=== PATIENT | female | born 1995 | race Caucasian/White ===

== ENCOUNTER 2020-11-25 18:41 | Observation (INO) | payer OTHER, SELFPAY ==
[2020-11-25 19:03] VITALS: BP 136/70; PULSE 87
[2020-11-25 19:16] VITALS: BP 127/53; PULSE 84
[2020-11-25 19:27] VITALS: TEMP 36.9
--- NOTE | 2020-11-25 20:55 | OBADM ---
This patient, Loni Sewell, admitted to the OB room OB Post [facility] for observation. Patient/family oriented to hospital policies and general routines including ID bracelet, bed and alarms, visiting hours, pain management, procedures, bathroom and other care routines, personal items, smoking policy, room service/diet, and visiting hours. Patient/Family are encouraged to report perceived risks to care and to ask questions if they do not understand what they are told or what they should do.
--- NOTE | 2020-12-03 09:40 | PM.OBTRLD ---
OB - Triage/Final Diagnosis Visit Information Reason for evaluation: other (Pre term contractions; leaking vaginal fluid) Comments/Additional reasons for admission: I have assessed the risk for this patient, Loni Sewell, and determined that she would benefit from observation care.
== END 2020-11-25 19:58 | disposition home or self-care (01) ==
PROVIDERS: Admitting Provider Obstetrics & Gynecology Gynecology; Visit Provider Obstetrics & Gynecology Gynecology
DX: O60.03 Preterm labor without delivery, third trimester (principal); O42.913 Preterm premature rupture of membranes, unspecified as to length of time between rupture and onset of labor, third trimester; Z3A.29 29 weeks gestation of pregnancy
CPT/HCPCS: 84112; G0378; G0379

== ENCOUNTER 2020-12-03 09:45 | Outpatient (RCR) | payer OTHER, SELFPAY ==
[2020-12-03 11:07] LABS: Hematocrit 34.8 % (37.0-47.0); Hemoglobin 11.4 g/dL (12.0-15.0)
[2020-12-03 11:34] LABS: Glucose 1 Hour PP 50gm Dose 164 mg/dL
[2020-12-03 12:04] LABS: HIV 1/2 Ab P24 Ag Result Negative (Negative)
[2020-12-03 12:45] LABS: Vitamin D 25 Hydroxy 36.7 ng/mL
== END 2021-03-03 23:59 | disposition home or self-care (01) ==
LOC: ANHLAB 09:45
PROVIDERS: Visit Provider Obstetrics & Gynecology Gynecology
DX: Z11.4 Encounter for screening for human immunodeficiency virus [HIV] (principal); O36.0190 Maternal care for anti-D [Rh] antibodies, unspecified trimester, not applicable or unspecified; Z3A.00 Weeks of gestation of pregnancy not specified
CPT/HCPCS: 36415; 82306; 82947; 85014; 85018; 85461; 86703; G0432

== ENCOUNTER → 2020-12-03 15:16 | Outpatient (CLI) | payer OTHER, SELFPAY ==
--- NOTE | ~2020-12-03 | US_ITS ---
EXAMINATION: US OB follow up DATE: 12/03/2020 15:54 INDICATION: Follow-up of anatomy. Third trimester. TECHNIQUE: Real-time ultrasound of the pelvis was performed. COMPARISON: None. FINDINGS: There is a single living fetus in vertex presentation. The placenta is posterior, 9.8 cm from the ce rvix. heart rate is 140 beats per minute (bpm). The amniotic fluid index is 17.4 cm, which is n ormal. The following biometric data were obtained: Biparietal diameter (BPD): 7.4 cm; head circumference (HC): 27.2 cm; abdominal circumference (AC): 26 .4 cm; femur length (FL): 6.1 cm. These measurements are concordant. Estimated weight is 1621 g +/- 243 g, which correlates with 46th percentile when 02/08/21 is us ed as estimated date of delivery. As single measurements, these parameters are each equal to the following estimated gestational ages w ith ranges of +/- 2 standard deviations: BPD: 29 weeks 5 days (27 weeks 3 days - 31 weeks 6 days). HC: 29 weeks 4 days (27 weeks 4 days - 31 weeks 5 days). AC: 30 weeks 4 days (27 weeks 4 days - 33 weeks 3 days). FL: 31 weeks 4 days (28 weeks 4 days - 34 weeks 4 days). estimated gestational age based solely on measurements from this exam is 30 weeks 3 days +/- 2 weeks 1 days. The visualized portions of the spine are normal. The four-chamber heart view is normal. The kid neys are normal. The stomach and diaphragm are normal. IMPRESSION: 1. Single living fetus in vertex presentation. 2. Estimated weight is 1621 g +/- 243 g, which correlates with 46th percentile when 02/08/21 i s used as estimated date of delivery. 3. Normal visualized portions of the anatomy. Reviewed, dictated and finalized at location A. IMPRESSION: 1. Single living fetus in vertex presentation. 2. Estimated weight is 1621 g +/- 243 g, which correlates with 46th perc entile when 02/08/21 is used as estimated date of delivery. 3. Normal visualized portions of the anatomy.
== END ==
PROVIDERS: Visit Provider Obstetrics & Gynecology Gynecology
DX: Z36.2 Encounter for other antenatal screening follow-up (principal); Z3A.30 30 weeks gestation of pregnancy
CPT/HCPCS: 76816

== ENCOUNTER 2020-12-10 10:06 | Outpatient (CLI) | payer OTHER, SELFPAY ==
[2020-12-10 10:45] LABS: Glucose Fasting Gestational 85 mg/dL (>/=95)
[2020-12-10 12:25] LABS: Glucose 1 Hour Gest 149 mg/dL (>/=180)
[2020-12-10 13:30] LABS: Glucose 2 Hour Gest 110 mg/dL (>/= 155)
[2020-12-10 14:17] LABS: Glucose 3 Hour Gest 116 mg/dL (>/=140)
== END 2020-12-10 10:07 | disposition home or self-care (01) ==
LOC: ANHLAB 10:08
PROVIDERS: Visit Provider Obstetrics & Gynecology Gynecology
DX: O99.810 Abnormal glucose complicating pregnancy (principal); Z3A.00 Weeks of gestation of pregnancy not specified
CPT/HCPCS: 36415; 82951; 82952

== ENCOUNTER 2021-02-03 04:56 | Inpatient (IN) | payer OTHER, SELFPAY ==
[2021-02-03] VITALS (258 sets, daily range): BP systolic 95–162; BP diastolic 44–112; PULSE 57–98; TEMP 36.2–37.4; O2SAT 84–100; BMI 36.5
--- NOTE | 2021-02-03 05:13 | LDADM ---
This patient, Loni Sewell, was admitted to Labor/Delivery/Recovery 104 on 02/03/21 at 04:56. Plans for labor, pain management and were discussed with patient. Patient/family oriented to hospital policies and general routines including ID bracelet, bed and alarms, visiting hours, pain management, procedures, bathroom and other care routines, personal items, smoking policy, room service/diet and guest tray routines, security routines, and visiting hours. Patient/Family are encouraged to report perceived risks to care and to ask questions if they do not understand what they are told or what they should do. See OBIX for further documentation.
[2021-02-03 05:50] LABS: Basophils Percent Auto 0.3 % (0.2-1.2); Eosinophils Absolute Auto 0.1 K/mm3 (0-0.3); Eosinophils Percent Auto 0.7 % (0-4.4); Hemoglobin 10.7 g/dL (12.0-15.0); Immature Granulocyte Absolute 0.02 K/mm3 (0.00-0.031); Immature Granulocyte Percent A 0.3 % (0-0.5); Lymphocytes Absolute Auto 1.63 K/mm3 (0.9-3.2); Lymphocytes Percent Auto 23.8 % (18.3-44.2); Mean Corpuscular HGB Conc 33.4 g/dl (32-36); Mean Corpuscular Hemoglobin 28.2 pg (26-34); Mean Corpuscular Volume 84.4 fl (80-100); Mean Platelet Volume 12.6 fl (7.4-10.4); Monocytes Absolute Auto 0.5 K/mm3 (0.1-0.6); Monocytes Percent Auto 7.6 % (2.6-8.5); Neutrophils Absolute Auto 4.6 K/mm3 (1.3-6.7); Neutrophils Percent Auto 67.3 % (45.5-73.1); Platelet Count Result 225 k/mm3 (150-375); Red Blood Count 3.79 M/mm3 (4.2-5.4); Red Cell Distribution Width 12.5 % (11.5-14.5); White Blood Count 6.9 K/mm3 (4.5-10.0)
[2021-02-03] MEDS: LACTATED RINGERS 1,000 ML 125 ML IV CONT ×3 (05:54→16:27)
[2021-02-03] MEDS: OXYTOCIN 30 UNITS/NS 500 ML 30 UNITS/500 ML BAG 6 UNITS IV CONT (05:54)
--- NOTE | 2021-02-03 06:36 | WPDANESEPPF ---
Anes - Initial Pre Proc Eval Procedure: labor epidural Date/Time: 02/03/21 06:36 Surgeon: Elizabeth Grant MD Pre Op Diagnosis: labor pain Pre Op Diagnosis: Induction of Labor Patient Data Age: 25 Gender: F Height: 1.7 m Weight: 105.7 kg Last Vital Signs Temp 37.2 C 02/03/21 05:41 Pulse 76 02/03/21 06:31 BP 141/86 H 02/03/21 06:31 Allergies Allergy/AdvReac Type Severity Reaction Status Date / Time azithromycin Allergy Mild Rash Verified 02/03/21 06:08 Penicillins Allergy Unknown Rash Verified 02/03/21 06:08 Home Medications Medication Instructions Recorded Confirmed Type PNV cmb#95-ferrous fumarate-FA 1 tablet PO DAILY 01/11/21 01/11/21 History [] aspirin 81 mg PO DAILY 01/11/21 01/11/21 History sertraline 200 mg PO DAILY 01/11/21 02/03/21 History Laboratory Tests 02/03/21 02/03/21 05:38 05:39 WBC 6.9 K/mm3 K/mm3 (4.5-10.0) RBC 3.79 M/mm3 L M/mm3 (4.2-5.4) Hgb 10.7 g/dL L g/dL (12.0-15.0) Hct 32.0 % L % (37.0-47.0) MCV 84.4 fl fl (80-100) MCH 28.2 pg pg (26-34) MCHC 33.4 g/dl g/dl (32-36) RDW 12.5 % % (11.5-14.5) Plt Count 225 k/mm3 k/mm3 (150-375) MPV 12.6 fl H fl (7.4-10.4) Immature Gran % (Auto) 0.3 % % (0-0.5) Neut % (Auto) 67.3 % % (45.5-73.1) Lymph % (Auto) 23.8 % % (18.3-44.2) [place] % (Auto) 7.6 % % (2.6-8.5) Eos % (Auto) 0.7 % % (0-4.4) Baso % (Auto) 0.3 % % (0.2-1.2) Lymph # (Auto) 1.63 K/mm3 K/mm3 (0.9-3.2) [place] # (Auto) 0.5 K/mm3 K/mm3 (0.1-0.6) Eos # (Auto) 0.1 K/mm3 K/mm3 (0-0.3) Baso # (Auto) 0.0 K/mm3 K/mm3 (0.0-0.1) Abs Immat Gran (auto) 0.02 K/mm3 K/mm3 (0.00-0.031) Absolute Neuts (auto) 4.6 K/mm3 K/mm3 (1.3-6.7) Absolute Nucleated RBC 0.0 K/mm3 K/mm3 (0.0-0.012) Nucleated RBC % 0.0 % % (0.0-0.2) RPR Pending Patient hx anesthesia problems: none Family hx anesthesia problems: none Results Review: All pre-operative results and documents have been reviewed as part of the pre-operative evaluation. [facility] Family History Family History Other No pertinent family history Social History Social History Smoking status: Never smoker Substance use: never Spiritual care concerns: No Anes - Eval Final PreProcedure Day of Procedure 02/03/21 06:36 Patient weight: obese Heart: regular rate and rhythm Lungs: clear to auscultation and normal air movement Airway: Mallampati scale class II Neurological: alert and oriented ASA classification: II Anesthetic plan: proceed Anesthesia type and monitoring: regional epidural and standard monitoring Results Review: All pre-operative results and documents have been reviewed as part of the pre-operative evaluation. Informed Consent: The patient's anesthetic plan and its attendant risks and benefits were discussed with the patient/family/POA. Questions were solicited and answers provided to the satisfaction of the patient/family/POA.
[2021-02-03] MEDS: ONDANSETRON INJ 4 MG/2 ML VIAL IV PUSH (09:20)
--- NOTE | 2021-02-03 09:30 | WPDOBADMIT ---
Obstetrics - Admit Note Admission Note: record reviewed. No pertinent additions to the history and/or any subsequent changes in the physical findings that are not consistent with the expected course of the were found. Additions to the history and/or subsequent changes in the physical findings follow. Here for MIL @39 wks. BP's elevated. FHTs reactive. Cervix 1-2/50/-3 AROM with clear fluid. Continue Pitocin.
[2021-02-03] MEDS: SODIUM CHLORIDE 0.9% IV 1,000 ML 150 ML I-UTERINE (16:43)
[2021-02-03] MEDS: SERTRALINE HCL 50 MG TABLET 200 MG PO (23:35)
[2021-02-04] VITALS (216 sets, daily range): BP systolic 102–184; BP diastolic 51–110; PULSE 59–128; RESP 16–18; TEMP 36.6–37.9; O2SAT 94–100
[2021-02-04] MEDS: LACTATED RINGERS 1,000 ML 125 ML IV CONT (01:30)
[2021-02-04] MEDS: ceFAZolin 2 GM/D5W 50 ML 2 GM/50 ML BAG IVPB (03:44)
[2021-02-04] MEDS: OXYTOCIN 30 UNITS/NS 500 ML 30 UNITS/500 ML BAG 6 UNITS IV CONT (04:12)
--- NOTE | 2021-02-04 07:58 | PM.OBPNLAB ---
Pain Control Date/time seen: 02/04/21 07:58 Pain control: epidural Pelvic Exam Dilation (cm): 9 station: 0 Amniotic membrane status: Ruptured Status status: Category l Assessment and Plan Assessment: induction ongoing Plan: continuous present management Comments: Induction-Slow progress of labor. Now 9 cm. Will continue to evaluate. Discussed possible csection with patient. PIH- Bp's remain elevated, no symptoms
[2021-02-04] MEDS: LABETALOL HCL 100 MG TABLET PO (08:14)
[2021-02-04] MEDS: ACETAMINOPHEN 500 MG TABLET 1000 MG PO (08:15)
[2021-02-04] MEDS: GENTAMICIN 80MG/SOD CHL 50 ML 80 MG/50 ML BAG 100 MG IVPB (08:32)
--- NOTE | 2021-02-04 12:50 | PM.OBPRVD ---
OB - Delivery Note Procedure Delivery date: 02/04/21 Procedure: events: Induced HTN and Labor Induction Intrapartal events: Febrile Induction method: AROM and per pitocin protocol Delivery monitor: internal FHT and internal uterine Route of delivery: Laceration Description: None Specimen: Yes (placenta) Quantitative Blood Loss (ml): 215 Anesthesia type: Epidural Disposition: floor [place] Baby Date of : 02/04/21 Weeks of gestation at delivery: 39 Infant gender: Female presentation: vertex position: Right Occiput Anterior Placenta delivery description: Spontaneous cord vessel description: 3 Vessels
--- NOTE | 2021-02-04 12:51 | PM.OBDSVD ---
DS: Admitting Diagnosis Discharge Date 02/06/21 Admitting Diagnosis MIL 39 wks DS: Discharge Diagnosis Discharge Diagnosis (1) (normal spontaneous vaginal delivery): Code(s): O80 - Encounter for full-term uncomplicated delivery Status: Acute (2) PIH ( induced hypertension): Code(s): O13.9 - Gestational [-induced] hypertension without significant proteinuria, unspecified trimester Status: Acute OB - DS: Summary OB Procedures : PIH Mgmt and Ultrasound OB Procedures Intrapartum: Spontaneous Vag Delivery OB Procedures: : None Peripartum Data Infant Delivery Method: Natural Vaginal Laceration Description: None complications: none Status at Discharge Functional status at discharge: independent ambulation Overall status at discharge: patient is progressing back to baseline Time Spent with Patient Time attestation: Total time spent providing and/or coordinating discharge services: Discharge Plan Discharge Attending physician on discharge: Elizabeth Grant Discharging Clinician: Favio Ramírez Anticipated Discharge Date/Time: 02/06/21 12:53 Patient Disposition: Home, Self-Care Activity: may shower and pelvic rest Diet: regular Discharge Instructions: Education: Mom and Baby Guide Given to: Mother Follow-Up: Call your delivering provider's office for an appointment to be seen in: 1 Week [facility]. Appointment Date/Time: Monday, February 08, 2021 at 11:00 am What to expect at your follow-up visit: Blood Pressure Check and Physical Assessment Call [phone] if you are unable to keep your appointment time. BREAST CARE: * Wear a snug supportive bra. * For engorgement discomfort: Breast Feeding: * Apply warm moist washcloths * Express milk as needed to relieve engorgement * Wear loose clothing Bottle Feeding: * May apply ice packs * For sore nipples: * Identify correct latch-on * Apply warm moist washcloths before and after nursing * Air dry nipples after nursing * May apply Lansinoh cream to nipples EPISIOTOMY/PERINEAL CARE: * Until bleeding stops, use your sincere bottle after urinating * Change your pad frequently throughout the day * You may take sitz baths several times a day (fill your bathtub with warm water and soak for 20 minutes.) Do NOT bathe in the water * No tub baths until seen by your physician - You may shower ACTIVITY: * Rest as much as possible. * Do not exercise or lift anything heavier than your baby (such as laundry or other children.) * Avoid stairs or driving as much as possible. * Do not put anything into the vagina. No douching, tampons, or sexual activity until seen by physician. NOTIFY PHYSICIAN IF YOU HAVE ANY QUESTIONS OR IF ANY OF THE FOLLOWING SYMPTOMS OCCUR: * If your episiotomy or incision becomes red, swollen, or more painful than what you have experienced in the hospital. * If your vaginal bleeding becomes foul smelling. * If your vaginal bleeding becomes more heavy than a period or if your bleeding changes from pink to bright red. However, you may pass an occasional walnut-sized clot once or twice for the first week . * If you experience a sharp, shooting pain in you calves. * If you discover a hard, reddened area on your breast or if you experience flu-like symptoms. DIET: * Eat regular, well-balanced meals. * Drink plenty of fluids daily. If , drink to thirst. Follow-up/Referrals: Elizabeth Grant MD [Physician] - 1 Week (and 6 wk) Discharge Medications: Continued PNV cmb#95-ferrous fumarate-FA [] 28 mg iron- 800 mcg Tablet 1 tablet PO DAILY RF: 0 sertraline 200 mg Capsule 200 mg PO DAILY RF: 0 Discontinued aspirin 81 mg Capsule
[2021-02-04] MEDS: OXYTOCIN 30 UNITS/NS 500 ML 30 UNITS/500 ML BAG 125 UNITS IV CONT (13:04)
--- NOTE | 2021-02-04 13:10 | PC.NURSE ---
RN requested assist with latching infant for first feeding. Several attempts made is unable to draw nipple in. Mother's nipples have a low profile, areolas are firm and edematous. Demonstrated stimulation techniques to wake infant for feeding. Assisted with to breast. Reviewed positioning/alignment in cross cradle, holding breast in ?U? hold and guided asymmetrical latch on. Reviewed rational for each. Several attempts made in 10 minutes, infant was unable to draw nipple in deeply. eagerly and feeding cues noted. Offered and explained the nipple shield and how it may assist with latching. Mother is willing to use. Nipple shield provided to mother due to ineffective latch. Instructions given on application and cleaning of shield. Discussed nipple shield precautions and possible complications. Patient able to return demonstration on proper application of shield. Discussed the need to initiate pumping if infant continues to nurse with the shield. Patient verbalizes understanding. With shield in place, infant was able to latch correctly within a few attempts. began slowing nursing with good attempts within a few minutes nursed eagerly with steady draws and occasional swallowing noted, some pausing noted. Reviewed signs of a correct latch, effective nursing and suck swallow ratio. Suggested mother stimulate while feeding to increase stimulation for milk supply, for increased intake and to assist with maintaining deep latch. Infant was able to maintain latch without discomfort to mother. Demonstrated how to adjust latch more deeply while feeding as needed. Nipple care reviewed of lanolin after feedings, warm compresses as needed. Instructed mother to call out for RN assistance if she is unable to latch for feeding or she has discomfort with nursing. Instructed feeding should be initiated three hours from start of last feeding or if feeding cues are noted before. Mother voiced understanding of information shared.
[2021-02-04 13:26] LABS: Rapid Plasma Reagin Non-Reactive (NonReactive)
[2021-02-04] MEDS: IBUPROFEN 600 MG TABLET PO ×2 (13:59→20:45)
--- NOTE | 2021-02-04 15:23 | PC.NURSE ---
Patient transferred to post room #282 per wheelchair from labor and delivery. Support person present. Oriented to unit, room, information board, rooming in, admission packet and security measures. Patient verbalizes understanding.
[2021-02-04] MEDS: SERTRALINE HCL 50 MG TABLET 200 MG PO (20:45)
[2021-02-05] VITALS (7 sets, daily range): BP systolic 105–152; BP diastolic 58–89; PULSE 70–85; RESP 16–18; TEMP 36.4–37; O2SAT 97–100
[2021-02-05 05:41] LABS: Hematocrit 27.5 % (37.0-47.0); Hemoglobin 8.9 g/dL (12.0-15.0)
--- NOTE | 2021-02-05 07:32 | PM.OBPNVD ---
OB - PN: Subj Subjective Date/time seen: 02/05/21 07:32 Patient comments: no complaints and pain well controlled baby status: doing well OB - PN: Obj Data Labs CBC & Chem 7: 02/05/21 03:38 Labs: Laboratory Results - last 24 hr 02/03/21 02/05/21 05:39 03:38 Hgb 8.9 L Hct 27.5 L RPR Non-reactive OB - PN A/P Plan day: 1 Plan: routine care Comments: BP much better this am. No PIH sx. No diuresis yet. Time Spent With Patient Time: Total time spent is greater than 50% in coordination of care (as documented) at patient's floor/unit and/or counseling patient: Exam : Bimanual exam- vagina & uterus: other (Uterus firm, nt @U)
[2021-02-05] MEDS: IBUPROFEN 600 MG TABLET PO ×2 (09:20→17:31)
[2021-02-05] MEDS: POLYSACCHARIDE IRON COMPLEX 150 MG CAPSULE PO ×2 (09:21→17:32)
[2021-02-05] MEDS: MULTIVIT/MIN/PREN/FOL AC/IRON TABLET 1 TAB PO (09:21)
--- NOTE | 2021-02-05 10:30 | PC.NURSE ---
Mother called out for assist with feeding. Mother reports infant is sleepy and makes eager attempts to latch with good bursts of nursing. Mother has continues to use nipple shield for all feedings. Mother states infant had a few eager feedings during the night. is able to freely thrust tongue past gum ridge and flange both lips. Skin is intact on both nipples, no redness and bruising noted. Both nipples appear flat and areolas more edematous today. Nipple care reviewed of lanolin after feedings, warm compresses as needed. Reviewed feeding cues, frequencies, duration of feedings, feeding elimination flow sheet, and signs of adequate intake. Demonstrated stimulation techniques to wake infant for feeding. Assisted with to breast. Reviewed positioning/alignment in cross cradle, holding breast in ?U? hold and guided asymmetrical latch on. Reviewed rational for each. Infant was unable to latch correctly using the nipple shield. Once latched infant made a weak effort to suckle with a few short draws and then fell asleep with nipple in mouth. Infant stimulated to wake with to return to breast with same results. Reviewed nipple shield precautions and possible complications. Instructions given on application and cleaning of shield. Patient able to return demonstration on proper application of shield. Discussed the need to initiate pumping if infant continues to nurse with the shield. Patient verbalizes understanding. Discussed the difference of effective vs ineffective feeding. Reviewed is latching with good burst of suckling, she is not feeding consistently with adequate milk transfer at this time and continues to need supplement after . Feeding options discussed, Feeding Plan is for mother to put to breast each feeding for up to 15 minutes, then pace feed supplement 20 mls and pump for 10-15 minutes. Parents are comfortable with supplementation and pumping. If begins to nurse effectively with long draws and frequent swallowing noted, infant may decrease supplementation and discontinue pumping. Suggested mother have [employer] cosmetics machine operator observe feeding before discontinuing supplementation. Discussed increasing supplementation as requires to satisfactions. Reviewed paced feeding and suggested to stop when infant is satisfied, as long as infant is having required output. With increased supplementation infant may not want to feed for 4 hours. Mother will continue to pump on infant feeding schedule and will increase session to 20 minutes if pumping every 4 hours. Instructed mother to call out for RN assistance if she is unable to latch infant for feeding or she has discomfort with nursing. Instructed feeding should be initiated three hours from start of last feeding or if feeding cues are noted before. Mother voiced understanding of information shared.
--- NOTE | 2021-02-05 11:00 | PC.NURSE ---
Breast pump provided due to nipple shield us/ineffective feeding. Instructions given on breast pump care and usage, pumping schedule, nipple care, and collection and storage of breast milk. Encouraged fats-mt-eogl, breast massage and manual expression to stimulate supply. Assessed patient for correct flange size, placement and draw. Patient verbalizes and demonstrates understanding of instructions. Discussed colostrum vs milk supply and mother may not see more than a few drops the first few days, milk should transition in by day 3 and she may see more volume pumped per session.
[2021-02-05] MEDS: ACETAMINOPHEN 325 MG TABLET 650 MG PO ×2 (12:53→19:05)
[2021-02-05] MEDS: SERTRALINE HCL 50 MG TABLET 200 MG PO (21:03)
[2021-02-06 04:00] VITALS: BP 153/81; PULSE 68; RESP 16; TEMP 36.6; O2SAT 97
[2021-02-06 07:29] VITALS: BP 147/76; PULSE 63; RESP 16; TEMP 36.5; O2SAT 96
[2021-02-06] MEDS: MULTIVIT/MIN/PREN/FOL AC/IRON TABLET 1 TAB PO (07:29)
[2021-02-06] MEDS: IBUPROFEN 600 MG TABLET PO (07:29)
[2021-02-06] MEDS: POLYSACCHARIDE IRON COMPLEX 150 MG CAPSULE PO (07:29)
--- NOTE | 2021-02-06 13:26 | PC.NURSE ---
1000 Patient viewed the discharge video Mother & Baby Care, The First Two Weeks . Patient was given the opportunity and encouraged to ask questions. Patient verbalized understanding of information shared and has been given the mother/baby guide for home reference.
[2021-02-08 11:22] VITALS: BP 138/89; PULSE 94; RESP 20; TEMP 36.9; O2SAT 100
== END 2021-02-06 12:30 | disposition home or self-care (01) | DRG 807 ==
LOC: ANHLDR 02-04 12:53 → ANHOB2 02-05 09:30 → ANHLDR 02-07 08:15 → ANHOB2 02-07 08:15
PROVIDERS: Admitting Provider Obstetrics & Gynecology Gynecology; Visit Provider Obstetrics & Gynecology
DX: O13.4 Gestational [pregnancy-induced] hypertension without significant proteinuria, complicating childbirth (principal); Z37.0 Single live birth; Z3A.39 39 weeks gestation of pregnancy; O36.8330 Maternal care for abnormalities of the fetal heart rate or rhythm, third trimester, not applicable or unspecified; O42.92 Full-term premature rupture of membranes, unspecified as to length of time between rupture and onset of labor
CPT/HCPCS: 36415; 85014; 85018; 85025; 86592; 86850; 86900; 86901; 88307; A9270; J0690; J1580; J2405; J2590; J2795; J7030; J7120

== ENCOUNTER 2021-08-19 10:54 | Observation (INO) | payer OTHER, SELFPAY ==
[2021-08-19] VITALS (7 sets, daily range): BP systolic 108–133; BP diastolic 55–96; PULSE 86–105; RESP 16–20; TEMP 36.3–37; O2SAT 96; BMI 34.9
--- NOTE | ~2021-08-19 | US_ITS ---
EXAMINATION: US OB <=14 wk fetus w TV DATE: 08/19/2021 12:23 INDICATION: Right lower quadrant abdominal pain during first trimester TECHNIQUE: Real-time pelvic ultrasound utilizing both a transvaginal and transabdominal probe was pe rformed. The interpreting radiologist was not present for the study. COMPARISON: None. FINDINGS: The uterus measures 9.1 x 5.0 x 6.9 cm. Endometrial complex measures2.4 cm in maximal thickness with numerous subcentimeter anechoic cystic lesions within the endometrial complex at the fundus. No defi nitive intrauterine gestational sac with no yolk sac and pole identified. The right ovary measures 3.3 x 1.6 x 2.3 cm. The left ovary measures 4.2 x 3.2 x 3.3 cm. 1.7 cm anech oic likely corpus luteum cyst in the left ovary. Vascular flow with both arterial and venous waveform s identified in both ovaries on color Doppler. There is a trace amount of free fluid in the cul-de-sa c at the left adnexa. IMPRESSION: 1. Nonspecific thickened endometrial complex containing multiple subcentimeter anechoic cystic region s without definitive intrauterine gestational sac. Differential would include early, failed or ectopi c . Correlate clinically and recommend follow-up with serial beta-hCG levels with repeat andre ging as clinically indicated. Reviewed, dictated and finalized at location B. IMPRESSION: 1. Nonspecific thickened endometrial complex containing multiple subcentimeter anechoic cystic regions without definitive intrauterine gestational sac. Differ ential would include early, failed or ectopic . Correlate clinically a nd recommend follow-up with serial beta-hCG levels with repeat imaging as clini fredis indicated.
--- NOTE | ~2021-08-19 | MR_ITS ---
EXAMINATION: MR abdomen wo con INDICATION: Right lower quadrant pain TECHNIQUE: Coronal SSFSE ARC, Coronal 2D FIESTA Fat Sat, Sagittal SSFSE Fat Sat ARC, Sagittal SD FIES TA Fat Sat, Axial 3D DualEcho, Axial LAVA, Axial STIR, Axial 2D FIESTA Fat Sat, Axial SSFSE ARC COMPARISON: None FINDINGS: The appendix is normal. The visualized pancreas, spleen, gallbladder, adrenal glands, and k idneys are normal. There are no pathologically enlarged lymph nodes. There are no dilated loops of rosa m wel. There is a 1.7 cm cyst in the left adnexa. A small volume of free fluid is present in the pelvis. The re is endometrial thickening which may reflect early . IMPRESSION: 1. Normal appendix. Reviewed, dictated and finalized at location A. IMPRESSION: 1. Normal appendix.
--- NOTE | 2021-08-19 11:11 | ED.GENADULT ---
HPI - General Adult General Chief complaint: Abdominal Pain Stated complaint: 5 weeks /cramping Time Seen by Provider: 08/19/21 10:55 Source: RN notes reviewed History of Present Illness HPI narrative: Patient presents emergency room from home for right lower quadrant abdominal pain. Patient states she is approximately 5 weeks patient is G2, P1 and is followed by Dr. Grant. Patient states pain began last night and is increased pain is described as cramping and does not radiate. She denies any fevers or chills nausea vomiting diarrhea vaginal bleeding or any other symptoms. States she does not take anything for the pain Related Data Home Medications Medication Instructions Recorded Confirmed vit no.95-ferrous 1 tablet PO DAILY 01/11/21 01/11/21 fumarate 28 mg-folic acid 800 mcg tablet () sertraline 200 mg capsule 200 mg PO DAILY 01/11/21 02/03/21 Allergies Allergy/AdvReac Type Severity Reaction Status Date / Time azithromycin Allergy Mild Rash Verified 02/03/21 06:08 Penicillins Allergy Unknown Rash Verified 02/03/21 06:08 Review of Systems Review of Systems: Gen.: Denies fevers or chills ENT: Denies congestion Respiratory: Denies shortness of breath or cough CV: Denies chest pain or palpitations GI: See HPI reports Musculoskeletal: Denies back pain or muscle pain Neuro: Denies numbness, tingling, weakness or focal weakness Skin: Denies rash Except as documented, all other systems reviewed and negative [facility] Past Medical History Medical History (Updated 08/19/21 @ 13:21 by Wilton Cross DO) PIH ( induced hypertension) Family History Family History Other No pertinent family history Social History Social History Smoking status: Never smoker Substance use: never Spiritual care concerns: No Exam Narrative: APPEARANCE: No acute distress, nontoxic, resting in bed HEENT: Normocephalic, atraumatic, OMM RESPIRATORY: No respiratory distress, clear to auscultation bilaterally with no rhonchi wheezing or rales CARDIOVASCULAR: RRR s murmur ABDOMINAL: Soft nondistended tender to palpation right lower quadrant no tenderness right upper quadrant, left upper quadrant left lower quadrant positive percussion tenderness right lower quadrant : Normal external exam small amount of white vaginal discharge in vaginal canal cervix is closed no vaginal bleeding, right adnexal tenderness no left adnexal tenderness MUSCULOSKELETAl: Moves all extremities. No clubbing, cyanosis or edema. NEURO: Awake and alert. Following commands, speech normal, no focal deficits SKIN:: Warm, dry. Normal Color PSYCHIATRIC: Normal affect/mood Course Course Emergency Course: Discussed Dr. Grant presentation work-up at this time recommends admission to her service request consult with general surgery Discussed with Dr. Kapoor with consult Discussed with patient and family results of workup and diagnosis. Discussed need for admission. Patient and family understand and agree to current treatment plan patient is having some abdominal pain will give morphine at this time Vital Signs Vital signs: Vital Signs Temperature 98.6 F 08/19/21 11:16 Pulse Rate 90 08/19/21 11:16 Respiratory Rate 20 08/19/21 11:16 Blood Pressure 119/96 H 08/19/21 11:16 Pulse Oximetry 96 08/19/21 11:16 Oxygen Delivery Room Air 08/19/21 11:16 Temperature 98.6 F 08/19/21 11:16 Pulse Rate 90 08/19/21 11:16 Respiratory Rate 20 08/19/21 11:16 Blood Pressure 119/96 H 08/19/21 11:16 Pulse Oximetry 96 08/19/21 11:16 Oxygen Delivery Room Air 08/19/21 11:16 Medical Decision Making Vital Signs Vital Signs: Vital Signs Temperature 98.6 F 08/19/21 11:16 Pulse Rate 90 08/19/21 11:16 Respiratory Rate 08/19/21 11:16 Blood Pressure 119/
[2021-08-19 11:33] LABS: Appearance Urine Slightly Cloudy (Clear); Basophils Percent Auto 0.8 % (0.2-1.2); Bilirubin Urine Negative (Negative); Blood Urine Negative (Negative); Color Urine Yellow (Yellow); Eosinophils Absolute Auto 0.1 K/mm3 (0-0.3); Eosinophils Percent Auto 2.3 % (0-4.4); Glucose Urine UA Negative (Negative); Hematocrit 40.1 % (37.0-47.0); Hemoglobin 12.8 g/dL (12.0-15.0); Immature Granulocyte Absolute 0.01 K/mm3 (0.00-0.031); Immature Granulocyte Percent A 0.2 % (0-0.5); Ketones Urine Negative (Negative); Leukocyte Esterase Ur Trace LEU/UL (Negative); Lymphocytes Absolute Auto 1.43 K/mm3 (0.9-3.2); Lymphocytes Percent Auto 27.3 % (18.3-44.2); Mean Corpuscular HGB Conc 31.9 g/dl (32-36); Mean Corpuscular Hemoglobin 27.5 pg (26-34); Mean Corpuscular Volume 86.1 fl (80-100); Mean Platelet Volume 10.2 fl (7.4-10.4); Monocytes Absolute Auto 0.4 K/mm3 (0.1-0.6); Monocytes Percent Auto 7.4 % (2.6-8.5); Neutrophils Absolute Auto 3.3 K/mm3 (1.3-6.7); Nitrate Urine Negative (Negative); Platelet Count Result 294 k/mm3 (150-375); Protein Urine Negative (Negative); Red Blood Count 4.66 M/mm3 (4.2-5.4); Red Cell Distribution Width 14.1 % (11.5-14.5); Specific Grav Ur 1.025 (1.001-1.035); Urobilinogen Urine 0.2 mg/dL (<2.0); White Blood Count 5.2 K/mm3 (4.5-10.0)
[2021-08-19 11:42] LABS: Alanine Aminotransferase 22 U/L (6-35); Albumin Level 4.8 g/dL (3.5-5.1); Alkaline Phosphatase 65 U/L (38-126); Anion Gap 7 mmol/L (8-16); Aspartate Amino Transferase 24 U/L (14-36); Bilirubin,Total 0.4 mg/dL (0.2-1.3); Blood Urea Nitrogen 10 mg/dL (7-17); Carbon Dioxide 25 mmol/L (22-30); Chloride 103 mmol/L (98-107); Estimated CRCL calculation 148 ml/min; Estimated Glomerular Filt Rate > 60; Glucose 101 mg/dL (65-110); Lipase 80 U/L (23-300); Potassium 4.2 mmol/L (3.4-5.0); Sodium 135 mmol/L (137-145)
[2021-08-19 11:50] LABS: Bacteria Urine Trace /hpf; Mucus Urine Moderate /lpf; RBC Urine 21-50 /hpf (0-2); Squamous Epithelial Cell Urine Many /hpf (Few)
[2021-08-19 11:56] LABS: Add Urine Microscopic? YES
[2021-08-19] MEDS: SODIUM CHLORIDE 0.9% IV 1,000 ML 999 ML IV CONT (12:29)
[2021-08-19] MEDS: MORPHINE SULFATE (*CRX) 2 MG/ML INJ IV PUSH (13:51)
--- NOTE | 2021-08-19 13:51 | PM.CNGS ---
Assessment and Plan Assessment and plan (1) Right lower quadrant abdominal pain: Code(s): R10.31 - Right lower quadrant pain Status: Acute Assessment and Plan: Patient presents with persistent right lower quadrant abdominal pain and is 5 weeks gestation. There are multiple possible etiologies that could be causing her pain, but her presentation and examination are concerning for acute appendicitis. Her labs showed a normal WBC count. We would recommend to get an MRI of the abdomen to further evaluate. Continue NPO status, IV fluids, and analgesics as needed. She will be admitted to OBGYN. Will await MRI results to decide further plan of care. (2) : Code(s): Z34.90 - Encounter for supervision of normal , unspecified, unspecified trimester Status: Acute (3) Obesity (BMI 30-39.9): Code(s): E66.9 - Obesity, unspecified Status: Acute Plan I have discussed the patient's case and plan of care with Dr. Kapoor. Thank you for allowing us to see the patient in consultation and we will continue to follow along with you. History of Present Illness Consult details Consult date: 08/19/21 Reason for consult: abdominal pain (RLQ abdominal pain, 5 weeks ) Requesting physician: Wilton Cross DO Narrative: This is a 25-year-old female who presented to the ER with complaints of abdominal pain starting last night. She is reportedly 5 weeks . She reports a sudden onset of cramping periumbilical abdominal pain around 11:30 pm last night. She reportedly had diarrhea with two liquid BMs and tried taking Unisom to help her go to sleep. She reports the cramping continued into the morning. She developed sharp RLQ abdominal pain this morning, which has remained persistent. She reports her pain is aggravated by sitting up in bed and walking. She reports associated nausea, but no vomiting. Due to the persistent pain, she called her OBGYN who directed her to the ER. She denies any vaginal bleeding or abnormal discharge. She denies any other close contacts with similar symptoms. Her abdominal pain is persistent despite IV Morphine. Obstetrics ultrasound showed a thickened endometrial complex containing multiple subcentimeter anechoic cystic regions without definitive intrauterine gestational sac. Beta HCG 2,433. Labs showed a normal white blood cell count. ER physician performed a pelvic exam without any evidence of bleeding or other significant abnormalities. Cultures and STD testing was sent from pelvic exam. The patient is now seen in the ER. She denies any history of abdominal surgery. Review of Systems Review of Systems: All systems reviewed & are unremarkable except as noted in HPI and below Constitutional: Constitutional: Reports as per HPI, Denies chills, Reports fatigue (reportedly felt this was related to her ) and Denies fever(s) Eyes: Eyes: Reports no additional eye complaints ENT: Reports system reviewed and no additional complaints, except as documented and Reports Normal hearing present Cardiovascular: Cardiovascular: Reports no additional cardiovascular complaints, Denies chest pain and Denies leg edema Respiratory: Respiratory: Reports no additional respiratory complaints, Denies cough and Denies dyspnea Gastrointestinal: Gastrointestinal: Reports as per HPI, Reports no additional gastrointestinal complaints, Reports abdominal pain, Reports diarrhea, Reports nausea and Denies vomiting Genitourinary: Genitourinary: Reports no additional female genitourinary complaints, Reports as per HPI and Denies dysuria Musculoskeletal: Musculoskeletal: Reports no additional musculoskeletal complaints Integumentary/Breasts: Skin/Breast: Reports system reviewed and no additional complaints, except as docu Neurologic: Reports system reviewed and no additional complaints, except as documented, Denies dizziness, Denies focal weakness, Denies numbness and Denies tingling Psychiatr
--- NOTE | 2021-08-19 14:58 | PC.NURSE ---
Dr Grant here to see patient and plan of care discussed.
--- NOTE | 2021-08-19 16:27 | OBADM ---
This patient, Loni Sewell, admitted to the OB room [facility] Post [facility] for observation. Patient/family oriented to hospital policies and general routines including ID bracelet, bed and alarms, visiting hours, pain management, procedures, bathroom and other care routines, personal items, smoking policy, room service/diet, and visiting hours. Patient/Family are encouraged to report perceived risks to care and to ask questions if they do not understand what they are told or what they should do.
--- NOTE | 2021-08-19 17:30 | PC.NURSE ---
Dr Grant called in for update. Informed that surgical consult just came by and no MRI results available yet.
[2021-08-19] MEDS: ACETAMINOPHEN 500 MG TABLET 1000 MG PO (20:48)
--- NOTE | 2021-08-19 21:03 | PC.NURSE ---
Updated Pietro Newsome CNM on patient assessment. Patient tolerating regular PO diet without complaints of nausea or emesis. Order to stop continuous IV fluids.
[2021-08-20 01:16] VITALS: BP 114/51; PULSE 84
[2021-08-20 01:18] VITALS: RESP 15; TEMP 36.8
[2021-08-20 05:27] LABS: Basophils Percent Auto 0.5 % (0.2-1.2); Eosinophils Absolute Auto 0.2 K/mm3 (0-0.3); Eosinophils Percent Auto 3.1 % (0-4.4); Hematocrit 39.1 % (37.0-47.0); Hemoglobin 12.4 g/dL (12.0-15.0); Immature Granulocyte Absolute 0.01 K/mm3 (0.00-0.031); Immature Granulocyte Percent A 0.2 % (0-0.5); Lymphocytes Absolute Auto 1.99 K/mm3 (0.9-3.2); Lymphocytes Percent Auto 36.2 % (18.3-44.2); Mean Corpuscular HGB Conc 31.7 g/dl (32-36); Mean Corpuscular Hemoglobin 27.4 pg (26-34); Mean Corpuscular Volume 86.3 fl (80-100); Mean Platelet Volume 10.3 fl (7.4-10.4); Monocytes Absolute Auto 0.4 K/mm3 (0.1-0.6); Monocytes Percent Auto 7.1 % (2.6-8.5); Neutrophils Absolute Auto 2.9 K/mm3 (1.3-6.7); Neutrophils Percent Auto 52.9 % (45.5-73.1); Platelet Count Result 265 k/mm3 (150-375); Red Blood Count 4.53 M/mm3 (4.2-5.4); Red Cell Distribution Width 13.9 % (11.5-14.5); White Blood Count 5.5 K/mm3 (4.5-10.0)
[2021-08-20 05:38] LABS: Alanine Aminotransferase 22 U/L (6-35); Albumin Level 4.1 g/dL (3.5-5.1); Alkaline Phosphatase 61 U/L (38-126); Anion Gap 5 mmol/L (8-16); Aspartate Amino Transferase 21 U/L (14-36); Bilirubin,Total < 0.1 mg/dL (0.2-1.3); Blood Urea Nitrogen 7 mg/dL (7-17); Calcium 8.8 mg/dL (8.4-10.2); Carbon Dioxide 25 mmol/L (22-30); Chloride 106 mmol/L (98-107); Estimated CRCL calculation 149 ml/min; Estimated Glomerular Filt Rate > 60; Glucose 105 mg/dL (65-110); Potassium 3.8 mmol/L (3.4-5.0); Sodium 136 mmol/L (137-145)
[2021-08-20 08:00] VITALS: TEMP 36.2
[2021-08-20 08:07] VITALS: BP 110/62; PULSE 78
--- NOTE | 2021-08-20 09:08 | PM.IMHP ---
H&P: HPI History of Present Illness Date/Time: 08/20/21 09:08 Chief Complaint: RLQ pain Narrative: 25 yo at 4 3/7 wks with onset of RLQ pain that took her to ER. u/s showed thickened endometrium but no IUP yet. No findings on RLQ. WBC normal. Admitted for observation, serial exams, and repeat labs. Overnight had decreased pain. Tylenol x 1 only required. MRI showed normal appearance of appendix, and right adnexa. HCG this am went up by appropriate amount and CBC ok. Will dc home. Review of Systems Gastrointestinal: Gastrointestinal: Reports nausea (mild) Genitourinary: Genitourinary: Denies urinary urgency (no dysuria) PMFSH Past Medical History Medical History (Updated 08/20/21 @ 09:14 by Elizabeth Grant MD) Anxiety Celiac disease Dx 2014 Depression (normal spontaneous vaginal delivery) PIH ( induced hypertension) with 2020 Surgical History Surgical History (Updated 08/20/21 @ 09:14 by Elizabeth Grant MD) History of strabismus surgery Family History Family History Other No pertinent family history Social History Social History Smoking status: Never smoker Substance use: never Spiritual care concerns: No Meds Home Medications and Allergies Home Medications Medication Instructions Recorded Confirmed Type vit no.95-ferrous 1 tablet PO DAILY 01/11/21 08/19/21 History fumarate 28 mg-folic acid 800 mcg tablet () sertraline 200 mg capsule 200 mg PO DAILY 01/11/21 08/19/21 History Allergies Allergy/AdvReac Type Severity Reaction Status Date / Time azithromycin Allergy Mild Rash Verified 02/03/21 06:08 Penicillins Allergy Unknown Rash Verified 02/03/21 06:08 Vital Signs Vital Signs - 24 hr 08/19/21 11:16 08/19/21 14:28 08/19/21 16:36 Temperature 98.6 F Pulse Rate 90 86 89 Respiratory Rate 20 Blood Pressure 119/96 H 133/76 124/55 L Pulse Oximetry 96 Oxygen Delivery Room Air 08/19/21 20:55 08/20/21 01:16 08/20/21 08:07 Temperature Pulse Rate 105 H 84 78 Respiratory Rate Blood Pressure 108/62 114/51 L 110/62 Pulse Oximetry Oxygen Delivery 08/19/21 14:30 08/19/21 14:30 08/19/21 16:30 Temperature 97.8 F 97.4 F L Pulse Rate Respiratory Rate 18 Blood Pressure Pulse Oximetry Oxygen Delivery Room Air 08/19/21 20:50 08/19/21 20:50 08/20/21 01:18 Temperature 98.1 F 98.3 F Pulse Rate Respiratory Rate 16 15 Blood Pressure Pulse Oximetry Oxygen Delivery Room Air 08/20/21 08:00 08/20/21 08:00 Temperature 97.1 F L Pulse Rate Respiratory Rate Blood Pressure Pulse Oximetry Oxygen Delivery Room Air Exam Const: General: healthy appearing and alert Orientation/consciousness: patient oriented x3 Resp: Effort & Inspection: normal respiratory effort GI: GI Palp: Yes abdominal tenderness (Right lower quadrant), Yes Soft to palpation, No Palpable mass present and No Rebound tenderness present Neuro: General: patient oriented x3 H&P: Results Labs Labs: Short CBC 08/19/21 08/20/21 Range/Units 11:26 05:21 WBC 5.2 5.5 (4.5-10.0) K/mm3 Hgb 12.8 D 12.4 (12.0-15.0) g/dL Hct 40.1 39.1 (37.0-47.0) % Plt Count 294 265 (150-375) k/mm3 BMP 08/19/21 08/20/21 11:26 05:21 Sodium 135 L 136 L Potassium 4.2 3.8 Chloride 103 106 Carbon Dioxide 25 25 BUN 10 7 Creatinine 0.60 L 0.60 L Glucose 101 105 Calcium 9.0 8.8 Liver Function 08/19/21 08/20/21 Range/Units 11:26 05:21 Total Bilirubin 0.4 < 0.1 L (0.2-1.3) mg/dL AST 24 21 (14-36) U/L ALT 22 22 (6-35) U/L Alkaline Phosphatase 65 61 (38-126) U/L Albumin 4.8 4.1 (3.5-5.1) g/dL Urine 08/19/21 Range/Units 11:26 Urine Color Yellow (Yellow) Urine Appearance Slightly cloudy (Clear)
--- NOTE | 2021-08-26 13:04 | PM.DS ---
DS: Admitting Diagnosis Discharge Date 08/20/21 Admitting Diagnosis right lower quadrant pain and 4 1/2 weeks DS: Discharge Diagnosis Discharge Diagnosis (1) Right lower quadrant abdominal pain: Code(s): R10.31 - Right lower quadrant pain Status: Acute (2) : Code(s): Z34.90 - Encounter for supervision of normal , unspecified, unspecified trimester Status: Acute DS: Summary Hospital Course Reason for hospitalization: observation Hospital Course: the patient was admitted with right lower quadrant pain from the emergency room. Beta HCG went up appropriately the following morning after admission. MRI stated the appendix and adnexa appear Normal. The general surgeon had a low suspicion for appendicitis and exam remained stable. Patient was discharged home with ectopic precautions. Status at Discharge Functional status at discharge: independent ambulation Overall status at discharge: patient is progressing back to baseline Time Spent with Patient Time attestation: Total time spent providing and/or coordinating discharge services: Discharge Plan Discharge Attending physician on discharge: Elizabeth Grant Consulting providers: Brian Kapoor ; Hernan Batista ; Dylan Sorenson ; Ledy Choudhary Discharging Clinician: Elizabeth Grant Patient Disposition: Home, Self-Care Activity: as tolerated and pelvic rest Diet: as tolerated Discharge Instructions: OB ANTEPARTUM DISCHARGE INSTRUCTIONS This information is given to help you properly care for yourself at home after your discharge from the hospital. Follow these instructions until your doctor tells you otherwise. DIET: Small Frequent Feedings Drink at Least Eight 8-Ounce Glasses of Caffeine-Free Beverages Daily Additional Diet Instructions: ACTIVITY: As Tolerated Additional Activity Instructions: RETURN TO LABOR AND DELIVERY IF YOU HAVE: Vaginal Bleeding OTHER INSTRUCTIONS: Follow up ultrasound in 1 week. FOLLOW-UP CARE: Keep Next Scheduled Appointment To see in/on Valuables released to patient or family? N/A Medications from home returned to patient? N/A I Acknowledge Receipt of and Understand the Above Instructions IF YOU HAVE ANY QUESTIONS REGARDING THESE INSTRUCTIONS, PLEASE CALL [phone]. IF PROBLEMS ARISE, CALL YOUR PROVIDER. IF EMERGENCY CARE IS NEEDED, [facility] EMERGENCY ROOM IS AVAILABLE 24 HOURS A DAY. Stand Alone Forms: General Discharge Information Follow-up/Referrals: Elizabeth Grant MD [Physician] - Discharge Medications: Continued PNV cmb#95-ferrous fumarate-FA [] 28 mg iron- 800 mcg Tablet 1 tablet PO DAILY sertraline 200 mg Capsule 200 mg PO DAILY Date of admission: 08/19/21 13:07 Primary Care Provider: PHYSICIAN,SUPERVISOR CYTOLOGY Admitting Provider: Elizabeth Grant Attending physician on admission: Elizabeth Grant Condition: Stable
== END 2021-08-20 08:26 | disposition home or self-care (01) ==
LOC: ANHED 13:21 → ANHOBPP 14:16
PROVIDERS: Admitting Provider Obstetrics & Gynecology Gynecology; Emergency Provider Emergency Medicine; Visit Provider Obstetrics & Gynecology Gynecology
DX: O26.891 Other specified pregnancy related conditions, first trimester (principal); R10.31 Right lower quadrant pain; Z3A.01 Less than 8 weeks gestation of pregnancy
CPT/HCPCS: 36415; 74181; 76801; 76817; 80053; 81001; 83690; 84702; 85025; 87070; 87491; 87591; 87808; 96361; 96374; 96375; 99285; A9270; G0378; J0131; J2270; J7030

== ENCOUNTER → 2021-08-28 11:16 | Outpatient (CLI) | payer OTHER, SELFPAY ==
--- NOTE | ~2021-08-28 | US_ITS ---
EXAMINATION: US OB transvaginal DATE: 08/28/2021 11:49 INDICATION: First trimester dating TECHNIQUE: Real-time pelvic transabdominal and transvaginal ultrasound was performed. COMPARISON: 08/19/2021 FINDINGS: The uterus measures 10.1 x 5.3 x 6.1 cm. There is an intrauterine gestational sac. There i s a 1.3 x 0.9 x 0.2 cm hypoechoic area adjacent to the gestational sac. A yolk sac is identified. Fet al heart motion is identified measuring 105 beats per minute (bpm) by M-mode Doppler. The crown rump length measures 3 mm , which correlates with an estimated gestational age of 5 weeks and 6 day( s) (+/-) 4 day(s). The right ovary measures 2.6 x 1.7 x 3.2 cm. The left ovary measures 4.2 x 2.6 x 3.5 cm and contains a corpus luteum. There is normal vascular flow in the ovaries. There is no free fluid in the pelvis. IMPRESSION: 1. Live intrauterine with an estimated gestational age of 5 weeks and 6 day(s) (+/-) 0 day( s) and an estimated delivery date of 04/24/2022. 2. Small subchronic hematoma. Reviewed, dictated and finalized at location A. IMPRESSION: 1. Live intrauterine with an estimated gestational age of 5 weeks and 6 day(s) (+/-) 0 day(s) and an estimated delivery date of 04/24/2022. 2. Small subchronic hematoma.
== END ==
PROVIDERS: PCP Obstetrics & Gynecology Gynecology; Visit Provider Obstetrics & Gynecology Gynecology
DX: Z36.87 Encounter for antenatal screening for uncertain dates (principal); Z3A.01 Less than 8 weeks gestation of pregnancy
CPT/HCPCS: 76817

== ENCOUNTER → 2021-09-25 14:47 | Outpatient (CLI) | payer OTHER, SELFPAY ==
--- NOTE | ~2021-09-25 | US_ITS ---
EXAMINATION: US OB <= 14 weeks fetus DATE: 09/25/2021 15:06 INDICATION: Follow-up subchorionic hematoma TECHNIQUE: Real-time transabdominal and transvaginal obstetric ultrasound. FINDINGS: No prior studies for comparison. The uterus measures 12.4 x 5 x 7.2 cm. There is an intrauterine gestational sac, with pole iden tified. The crown rump length measures 3.18 cm, which correlates with a estimated gestational age of 10 weeks 1 day. heart tones are identified measuring 162 BPM. There are 2 separate areas of subchorionic hemorrhage including posteriorly measuring 2.4 x 2 x 0.7 cm and anteriorly measuring 1.4 x 1.4 x 0.4 cm. The anterior subchorionic hemorrhage has developed since prior study. There is a lef t ovarian corpus luteal cyst measuring 1.7 cm. The right ovary is unremarkable. IMPRESSION: 1. SL IUP with an EGA of 9 weeks, 6 days (EDC by initial ultrasound of 04/24/2022). 2: 2 separate areas of subchorionic hemorrhage, largest posteriorly measuring 2.4 x 2 x 0.7 cm. Reviewed, dictated and finalized at location A. IMPRESSION: 1. SL IUP with an EGA of 9 weeks, 6 days (EDC by initial ultrasound of ). 2: 2 separate areas of subchorionic hemorrhage, largest posteriorly measuring 2.4 x 2 x 0.7 cm.
== END ==
PROVIDERS: PCP Obstetrics & Gynecology Gynecology; Visit Provider Obstetrics & Gynecology Gynecology
DX: O36.8910 Maternal care for other specified fetal problems, first trimester, not applicable or unspecified (principal); O46.91 Antepartum hemorrhage, unspecified, first trimester; Z3A.09 9 weeks gestation of pregnancy
CPT/HCPCS: 76801

== ENCOUNTER → 2021-10-21 10:18 | Outpatient (CLI) | payer OTHER, SELFPAY ==
--- NOTE | ~2021-10-21 | US_ITS ---
EXAMINATION: US OB limited DATE: 10/21/2021 10:42 INDICATION: Subchorionic hematoma during second trimester TECHNIQUE: Real-time ultrasound of the pelvis was performed. The interpreting radiologist was not pre sent for the study. COMPARISON: None. FINDINGS: There is a single living fetus in breech presentation. There is a 2.7 x 0.7 x 2.3 cm hypoec hoic area adjacent to the posterior/superior aspect of the gestational sac, not significantly changed . There is a 1.5 x 0.9 x 0.8 cm hypoechoic area adjacent to the inferior aspect of the gestational sa c, slightly decreased in size. The placenta is anterior and 1.3 cm from the internal cervical os. Fet al cardiac activity and movement are noted. heart rate is 142 beats per minute (bpm). The amniotic fluid index is subjectively normal. IMPRESSION: 1. Single living fetus in breech presentation. 2. Low-lying placenta. 3. Small subchorionic hematomas, one stable, one slightly decreased in size. Reviewed, dictated and finalized at location B.
== END ==
PROVIDERS: PCP Obstetrics & Gynecology Gynecology; Visit Provider Obstetrics & Gynecology Gynecology
DX: O32.1XX0 Maternal care for breech presentation, not applicable or unspecified (principal); O44.43 Low lying placenta NOS or without hemorrhage, third trimester; Z3A.00 Weeks of gestation of pregnancy not specified
CPT/HCPCS: 76815

== ENCOUNTER → 2021-12-11 14:47 | Outpatient (CLI) | payer OTHER, SELFPAY ==
--- NOTE | ~2021-12-11 | US_ITS ---
EXAMINATION: US OB /maternal detail DATE: 12/11/2021 15:34 INDICATION: anatomic survey. TECHNIQUE: Real-time ultrasound of the pelvis was performed. COMPARISON: Ultrasound 10/21/2021, 09/25/2021, 08/28/2021 FINDINGS: There is a single living fetus in breech presentation. The placenta is anterior and covers the cervi x. The cervical length is normal. heart rate is 132 beats per minute (bpm). The amniotic fluid volume is subjectively normal The following biometric data were obtained: Biparietal diameter (BPD): 5.2 cm; head circumference (HC): 19.7 cm; abdominal circumference (AC): 16 .6 cm; femur length (FL): 3.4 cm. These measurements are concordant. Estimated weight is 413 g +/- 62 g, which correlates with the 69th percentile when 04/24/22 is u sed as estimated date of delivery. As single measurements, these parameters are each equal to the following estimated gestational ages w ith ranges of +/- 2 standard deviations: BPD: 21 weeks 6 days (20 weeks 1 days - 23 weeks 4 days). HC: 21 weeks 6 days (20 weeks 3 days - 23 weeks 2 days). AC: 21 weeks 4 days (19 weeks 4 days - 23 weeks 5 days). FL: 20 weeks 5 days (19 weeks 0 days - 22 weeks 4 days). estimated gestational age based solely on measurements from this exam is 21 weeks 4 days +/- 1 weeks 4 days. The cerebral ventricles, cerebellum, cisterna magna, nuchal fold, lip, and visualized portions of the spine are normal. The heart is normal. The diaphragm, stomach, kidneys, and bladder are normal. Ther e are two umbilical arteries to yield a 3-vessel cord. The cord insertion is normal. IMPRESSION: 1. Single living fetus in breech presentation. 2. Estimated weight is 413 g +/- 62 g, which correlates with the 69th percentile when 04/24/22 is used as estimated date of delivery. 3. Normal anatomic survey. 4. Placenta previa. Follow-up ultrasound is recommended. Reviewed, dictated and finalized at location A. IMPRESSION: 1. Single living fetus in breech presentation. 2. Estimated weight is 413 g +/- 62 g, which correlates with the 69th pe rcentile when 04/24/22 is used as estimated date of delivery. 3. Normal anatomic survey. 4. Placenta previa. Follow-up ultrasound is recommended.
== END ==
PROVIDERS: PCP Obstetrics & Gynecology Gynecology; Visit Provider Obstetrics & Gynecology Gynecology
DX: O36.8920 Maternal care for other specified fetal problems, second trimester, not applicable or unspecified (principal); O44.02 Complete placenta previa NOS or without hemorrhage, second trimester
CPT/HCPCS: 76805